=== PATIENT | male | born 1955 | race Caucasian/White ===

== ENCOUNTER → 2017-05-06 | Outpatient (CLI) | payer OTHER | LOC: FIMAGING 09:18 | PROVIDERS: ATTEND Physician Assistant | DX: R93.8 Abnormal findings on diagnostic imaging of other specified body structures (principal) ==

== ENCOUNTER → 2017-05-08 | Outpatient (CLI) | payer OTHER | LOC: FIMAGING 08:14 | PROVIDERS: ATTEND Family Medicine | DX: K59.00 Constipation, unspecified (principal) ==

== ENCOUNTER → 2017-05-19 | Outpatient (CLI) | payer OTHER | LOC: FIMAGING 10:31 | PROVIDERS: ATTEND Family Medicine | DX: K59.00 Constipation, unspecified (principal) ==

== ENCOUNTER → 2017-06-18 | Outpatient (CLI) | payer OTHER ==
[~2017-06-18] MED LIST: GADOBUTROL 10 ML VIAL IVP ONE
== END ==
LOC: FIMAGING 10:20
PROVIDERS: ATTEND Internal Medicine Hematology & Oncology
DX: Z03.89 Encounter for observation for other suspected diseases and conditions ruled out (principal); C64.9 Malignant neoplasm of unspecified kidney, except renal pelvis
CPT/HCPCS: A9585

== ENCOUNTER 2017-06-22 12:16 | Day surgery (SDC) | payer OTHER ==
[2017-06-22] MEDS ORDERED: LIDOCAINE 1% 2 ML INJ ID PRN (12:33)
[2017-06-22] MEDS ORDERED: LR 1,000 ML IV ONE (12:33)
[2017-06-22] MEDS ORDERED: LIDOCAINE 1% 2 ML INJ ONE (12:36)
[2017-06-22] MEDS ORDERED: INDOMETHACIN 50 MG SUPP PR PRN (13:53)
--- NOTE | 2017-06-22 13:53 | PDGENHP ---
History & Physical Chief Complaint: rectal cancer History of Present Illness: 62 year old male presents for evaluation of a distal rectal cancer. Pertinent Past, Social, Family History: PMHx: none. PSurgHx: right carpal tunnel. faMHx: prostate ca Relevant Physical Exam: HEENT: anicteric. Cv: RRR +s1s2. lungs: CTAB. Abd: soft, nt, + bs Cardiorespiratory Assessment: ASA 2
--- NOTE | 2017-06-22 13:53 | PDANEPAE ---
ANE History of Present Illness Rectal CA ANE Past Medical History - Cardiovascular History Hx Hypertension: No Hx Arrhythmias: No Hx Chest Pain: No Hx Coronary Artery / Peripheral Vascular Disease: No Hx CHF / Valvular Disease: No Hx Palpitations: No - Pulmonary History Hx COPD: No Hx Asthma/Reactive Airway Disease: No Hx Recent Upper Respiratory Infection: No Hx Oxygen in Use at Home: No Hx Sleep Apnea: No Sleep Apnea Screening Result - Last Documented: Negative - Neurologic History Hx Cerebrovascular Accident: No Hx Seizures: No Hx Dementia: No - Endocrine History Hx Diabetes: No - Renal History Hx Renal Disorders: No - Liver History Hx Hepatic Disorders: No - Neurological & Psychiatric Hx Hx Neurological and Psychiatric Disorders: No - Cancer History Hx Cancer: Yes Cancer History Comment: RECTAL CANCER NEW DIAGNOSIS - Congenital Disorder History Hx Congenital Disorders: No - GI History Hx Gastrointestinal Disorders: Yes Gastrointestinal History Comment: COLON CANCER - Other Health History Other Health History: NONE - Chronic Pain History Chronic Pain: No - Surgical History Prior Surgeries: NONE ANE Review of Systems Review of Systems: - Exercise capacity METS (RN): 4 METS ANE Patient History - Allergies Allergies/Adverse Reactions: No Known Allergies Allergy (Verified 06/16/17 15:34) - NPO status NPO Since - Liquids (Date): 06/22/17 NPO Since - Liquids (Time): 07:00 NPO Since - Solids (Date): 06/21/17 NPO Since - Solids (Time): 04:00 - Anes Hx Anes Hx: no prior problems - Smoking Hx Smoking Status: Never smoked - Family Anes Hx Family Hx Anesthesia Complications: NONE ANE Labs/Vital Signs - Vital Signs Blood Pressure: 121/70 Heart Rate: 69 Respiratory Rate: 16 O2 Sat (%): 96 Height: 172.72 cm Weight: 58.967 kg ANE Physical Exam - Airway Mallampati Score: Class 2 Mouth exam: normal dental/mouth exam - Pulmonary Pulmonary: no respiratory distress - Cardiovascular Cardiovascular: regular rate and rhythym - ASA Status ASA Status: II ANE Anesthesia Plan Anesthesia Plan: MAC
[2017-06-22] MEDS ORDERED: PROPOFOL/EMULSION 500 MG/50 ML BOTTLE IV ONE (13:55)
[2017-06-22] MEDS ORDERED: NS 500 ML IV SCH (14:00)
[2017-06-22] MEDS ORDERED: NALOXONE HCL 0.4 MG/ML INJ IVP PRN (14:05)
[2017-06-22] MEDS ORDERED: ONDANSETRON 4 MG/2 ML VIAL IVP PRN (14:05)
--- NOTE | 2017-06-22 14:30 | GIREPORT ---
[facility] Surgical Services - Endoscopy Department Patient Name: Hunter Campos Procedure Date: 06/22/2017 1:47 PM Patient Type: Outpatient Attending / ER Physician: Benji Garza MD Procedure: Lower EUS Indications: Pre-treatment staging for anorectal carcinoma Patient Profile: 62 year old male presents for staging of a rectal cancer. Providers: Benji Garza MD Medicines: Monitored Anesthesia Care Complications: No immediate complications. Description of Procedure: After obtaining informed consent, the endoscope was passed under direct vision. Throughout the procedure, the patient's blood pressure, pulse, and oxygen saturations were monitored continuously. The Endosonoscope was introduced through the anus and advanced to the sigmoid colon for ultrasound. The Colonoscope with irrigation channel was introduced thro ugh the anus and advanced to the sigmoid colon. The lower EUS was accomplis hed without difficulty. The patient tolerated the procedure well. The quali ty of the bowel preparation was good. Findings: Endoscopic Finding : A fungating, infiltrative and ulcerated partially obstructing large mas s was found in the distal rectum about 1cm from the dentate line. The mass wa s partially circumferential (involving two-thirds of the lumen circumfere nce). The mass measured seven cm in length. No bleeding was present. Endosonographic Finding : A hypoechoic mass was found in the rectum. The mass was encountered at 1 cm (from the anal verge). The endosonographic borders were poorly-defined. The mass measured 13 mm (in maximum thickness). There was sonographic evide nce suggesting breakthrough of the muscularis propria with invasion into th e perirectal fat (Layer 5, manifested by an irregular outer surface). The re were several lymph nodes of 3-5mm at the level of the tumor,. The lymph nodes were distinct, round, and hypoechoic. Reactive versus malignant? Not amenable to FNA since at the level of the tumor. Estimated Blood Loss: Estimated blood loss: none. Post Op Diagnosis: - Malignant partially obstructing tumor in the distal rectum. - Rectal mass was visualized endosonographically. This was staged uT3 u Nx. - No specimens collected. Recommendation: - Discharge patient to home (with escort). - PET scan - Follow up with oncology. - Thank you for allowing me to participate in the care of your patient. Attending Participation: I personally performed the entire procedure. Benji Garza MD Benji Garza MD 06/22/2017 2:30:06 PM This report has been signed electronicallyBenji Garza MD Number of Addenda: 0 Note Initiated On: 06/22/2017 1:47 PM Total Procedure Duration Time 0 hours 18 minutes 42 seconds [email or web address]
--- NOTE | 2017-06-22 14:35 | POSTANESTH ---
Post Anesthetic Evaluation Cardiovascular Status: Similar to Pre-Op Cond Respiratory Status: Similar to Pre-op Cond. Level of Consciousness/Mental Status: Alert and Oriented (Similiar to pre-op) Pain Control: Adequate, Prn Tx Ordered Nausea/Vomiting Control: Adequate, Prn Tx Ordered Complications Possibly Related to Anesthesia: None Noted
[2017-06-22 14:54] VITALS: TEMP 98.6
[2017-06-22 15:21] VITALS: BP 124/71; PULSE 67; RESP 18; O2SAT 96
== END 2017-06-22 15:50 | disposition home or self-care (01) ==
LOC: FSGY 12:16
PROVIDERS: ATTEND Internal Medicine Gastroenterology
PROC: BD47ZZZ Ultrasonography of Gastrointestinal Tract (ICD-10-PCS; principal; 2017-06-22 14:15)
PROC: 0DJD8ZZ Inspection of Lower Intestinal Tract, Via Natural or Artificial Opening Endoscopic (ICD-10-PCS; principal; 2017-06-22 14:15)
DX: C20 Malignant neoplasm of rectum (principal); R59.1 Generalized enlarged lymph nodes
CPT/HCPCS: J2704

== ENCOUNTER → 2017-07-13 | Outpatient (CLI) | payer OTHER | LOC: FIMAGING 06:46 | PROVIDERS: ATTEND Internal Medicine Hematology & Oncology | DX: D43.4 Neoplasm of uncertain behavior of spinal cord (principal); M51.36 Other intervertebral disc degeneration, lumbar region; M51.26 Other intervertebral disc displacement, lumbar region; M99.73 Connective tissue and disc stenosis of intervertebral foramina of lumbar region; C20 Malignant neoplasm of rectum | CPT/HCPCS: A9585 ==

== ENCOUNTER 2017-09-22 12:33 | Inpatient (IN) | payer OTHER, MEDICAID ==
[2017-09-22] MEDS ORDERED: LIDOCAINE 1% 2 ML INJ ID PRN (12:48)
[2017-09-22] MEDS ORDERED: LR 1,000 ML IV ONE (12:48)
[2017-09-22] MEDS ORDERED: MIDAZOLAM 2 MG/2 ML VIAL ONE ×2 (14:02→17:15)
[2017-09-22] MEDS ORDERED: MIDAZOLAM 2 MG/2 ML VIAL IVP ONE (14:02)
--- NOTE | 2017-09-22 14:04 | PDANEPAE ---
ANE History of Present Illness ap resection ANE Past Medical History - Cardiovascular History Hx Hypertension: No Hx Arrhythmias: No Hx Chest Pain: No Hx Coronary Artery / Peripheral Vascular Disease: No Hx CHF / Valvular Disease: No Hx Palpitations: No - Pulmonary History Hx COPD: No Hx Asthma/Reactive Airway Disease: No Hx Recent Upper Respiratory Infection: No Hx Oxygen in Use at Home: No Hx Sleep Apnea: No Sleep Apnea Screening Result - Last Documented: Negative - Neurologic History Hx Cerebrovascular Accident: No Hx Seizures: No Hx Dementia: No - Endocrine History Hx Diabetes: No Hypothyroid: No Hyperthyroid: No - Renal History Hx Renal Disorders: No - Liver History Hx Hepatic Disorders: No - Neurological & Psychiatric Hx Hx Neurological and Psychiatric Disorders: No - Cancer History Hx Cancer: Yes Cancer History Comment: RECTAL. FINISHED RADIATION 08/10/17 - Congenital Disorder History Hx Congenital Disorders: No - GI History GERD: no Hx Gastrointestinal Disorders: Yes Gastrointestinal History Comment: COLON CANCER - Other Health History Other Health History: POST RADIATION PELLING OF SKIN FROM FEET AND HANDS - Chronic Pain History Chronic Pain: Yes (RECTAL AREA) - Surgical History Prior Surgeries: COLONOSCOPY 06/25/17. CARPAL TUNNEL RELEASE. TONSILLECTOMY ANE Review of Systems Review of Systems: - Exercise capacity METS (RN): 4 METS ANE Patient History - Allergies Allergies/Adverse Reactions: No Known Allergies Allergy (Verified 06/16/17 15:34) - Home Medications Home Medications: NK [No Known Home Meds] 09/17/17 [Last Taken Unknown] - NPO status NPO Status: no food or drink >8 hours NPO Since - Liquids (Date): 09/22/17 NPO Since - Liquids (Time): 03:00 NPO Since - Solids (Date): 09/21/17 NPO Since - Solids (Time): 06:00 - Anes Hx Anes Hx: no prior problems - Smoking Hx Smoking Status: Never smoked - Family Anes Hx Family Hx Anesthesia Complications: NONE ANE Labs/Vital Signs - Vital Signs Blood Pressure: 137/75 Heart Rate: 80 Respiratory Rate: 16 O2 Sat (%): 93 Height: 176.53 cm Weight: 61.235 kg ANE Physical Exam - Airway Mallampati Score: Class 2 Mouth exam: normal dental/mouth exam - Pulmonary Pulmonary: no respiratory distress - Cardiovascular Cardiovascular: regular rate and rhythym - ASA Status ASA Status: II ANE Anesthesia Plan Anesthesia Plan: general endotracheal anesthesia
--- NOTE | 2017-09-22 14:04 | PDHPUP ---
History & Physical Update H&P update statement: This history and physical update is based on an assessment of the patient which was completed after admission or registration (within 24 hours), but prior to the surgery/procedure. H&P update: H&P reviewed & patient examined, no change in patient's condition since H&P completed
[2017-09-22] MEDS ORDERED: DEXAMETHASONE 4 MG/ML VIAL ONE (14:10)
[2017-09-22] MEDS ORDERED: LIDOCAINE 2% 5 ML SDV ONE (14:10)
[2017-09-22] MEDS ORDERED: PROPOFOL 200 MG/20 ML VIAL ONE (14:10)
[2017-09-22] MEDS ORDERED: ROCURONIUM 100 MG/10 ML VIAL ONE (14:10)
[2017-09-22] MEDS ORDERED: fentaNYL 100 MCG/2 ML INJ ONE ×2 (14:10→19:15)
[2017-09-22] MEDS ORDERED: BUPIVACAINE 0.5% 30 ML SDV ONE (14:43)
[2017-09-22] MEDS ORDERED: ROCURONIUM 50 MG/5 ML VIAL ONE (16:54)
[2017-09-22] MEDS ORDERED: ONDANSETRON 4 MG/2 ML VIAL ONE (17:00)
[2017-09-22] MEDS ORDERED: LR 500 ML IV PRN (18:02)
[2017-09-22] MEDS ORDERED: ALBUTEROL 3 ML DEYVIAL IH PRN (18:02)
[2017-09-22] MEDS ORDERED: PHENYLEPHRINE HCL 100 MCG/ML SYR IVP PRN (18:02)
[2017-09-22] MEDS ORDERED: ONDANSETRON 4 MG/2 ML VIAL IVP PRN (18:02)
[2017-09-22] MEDS ORDERED: NALOXONE HCL 0.4 MG/ML INJ IVP PRN (18:02)
[2017-09-22] MEDS ORDERED: SUGAMMADEX SODIUM 200 MG/2 ML VIAL IVP ONE (18:27)
--- NOTE | 2017-09-22 18:48 | POSTOPPROG ---
Post Op Note Date of Operation: 09/22/17 Surgeon: Adele Stack Head Tennis Coach: bertha Anesthesiologist: omega Anesthesia: GET(General Endotracheal) Pre-op Diagnosis: rectal cancer Post-op Diagnosis: same Indication: 62 yo with rectal cancer s.p chemo and radiation Procedure: davinci abdominal perineal resection with ostomy Findings: no unusual Inf/Abcess present in the surg proc area at time of surgery?: No EBL: 100-500 Drains: Anuj Leonard, Wound Vac Specimen(s): rectum and anus
--- NOTE | 2017-09-22 19:05 | POSTANESTH ---
Post Anesthetic Evaluation Cardiovascular Status: Normal, Stable Respiratory Status: Normal, Stable Level of Consciousness/Mental Status: Can Participate in Eval Pain Control: Adequate, Prn Tx Ordered Nausea/Vomiting Control: Adequate, Prn Tx Ordered Complications Possibly Related to Anesthesia: None Noted
[2017-09-22] MEDS ORDERED: HYDROmorphONE/DILAUDID 2 MG/ML INJ ONE (19:14)
[2017-09-22] MEDS: HYDROmorphONE/DILAUDID 2 MG/ML INJ IVP PRN ×3 (19:20→19:50)
[2017-09-22] MEDS: fentaNYL 100 MCG/2 ML INJ IVP PRN ×3 (19:22→19:50)
[2017-09-22] MEDS: NS 1,000 ML IV SCH (22:30)
[2017-09-22] MEDS: KETOROLAC 15 MG/1 ML SDV IVP SCH (23:31)
[2017-09-23] MEDS: KETOROLAC 15 MG/1 ML SDV IVP SCH ×4 (05:13→23:12)
[2017-09-23 05:35] LABS: PLATELET COUNT 248 10^3/uL (150-400)
--- NOTE | 2017-09-23 07:58 | PDMN ---
Medical Necessity [place] [facility] [place]: abdominoperineal resection or total colectomy with proctectomy 5 days, INPT only : Davinci abdominal perineal resection with ostomy
[2017-09-23] MEDS: ENOXAPARIN 40 MG/0.4 ML SYR SC SCH (10:28)
[2017-09-23] MEDS: NS 1,000 ML IV SCH ×2 (10:48→21:54)
[2017-09-23] MEDS: HYDROCODONE/APAP 5/325 TAB PO PRN (10:49)
--- NOTE | 2017-09-23 12:14 | SOAPPROG ---
SOAP Progress Note Assessment/Plan: Assessment: POD # 1 s/p Davinci APR Neuro - [place], Toradol, Tylenol, morphine prn Resp - Cough IS Cards - No active issues GI - Gas in appliance FEN - NS@75. Clears : Keep mclaughlin due to deep pelvic dissection Heme/ID - Lovenox Dispo - Continue inpatient Other - Wound ostomy consult. Incisional wound vac, PT/OT S: Feeling tethered to O2, Mclaughlin, IV, SCDS, Wound Vac MANUEL O: General: Pleasant, well-nourished and well-groomed man HENT: Normocephalic, no gross hearing deficits, mucous membranes moist, pupils equal and round, no scleral icterus Lungs: Clear to auscultation bilaterally, No increased work of breathing Cardiac: Regular rate, no peripheral edema Abdomen: Bowel sounds present, gas in appliance. Ostomy [place] and a bit swollen. Good profile. Incisions clean dry and intact [place]V to suction MANUEL with scant serosang fluid Skin: Warm and dry. Psych: Mood and affect normal Neuro: Grossly intact Plan: 09/23/17 12:10 Objective: Vital Signs Temp Pulse Resp BP Pulse Ox 37.2 C 68 15 113/53 L 95 09/23/17 12:05 09/23/17 12:05 09/23/17 12:05 09/23/17 12:05 09/23/17 12:05 Laboratory Results 09/23/17 05:13 09/23/17 05:13 09/22/17 09/23/17 09/24/17 05:59 05:59 05:59 Intake Total 3000 Output Total 390 Balance 2610 ICD10 Worksheet Patient Problems: Problems Problem Status Onset Rectal cancer Acute - ICD10 Problem Qualifiers (1) Rectal cancer
--- NOTE | 2017-09-23 14:26 | WOCRNPDOC ---
LISA Advanced Assessment Note - Colostomy Assessment, Advanced Left Lower Abdomen Colostomy Stoma Colostomy Appliance Intact: Yes Colostomy Appliance Currently in Use: One Piece Convex, 2 1/4, Cut to Fit Stoma Color: Red Stoma Turgor: Moist, Taught, Shiny Stoma Shape: Round Stoma Height: Protuding Excessively (swollen) Colostomy Effluent: Flatus, Serosangenous (transitional ) Colostomy Details: End Colostomy Comment/Treatment Details: Patient seems somewhat confused today and is asking repetative questions, so it seems prudent to wait another day past surgery to initiate pouch change teaching, although the basics were reviewed. Patient is mainly concerned about flatus and being able to have an appliance that he can burp and has a filter and is worried about "blow outs". Reviewed one vs two piece appliances, and practiced emptying the pouch. Patient has some difficulty finding and pulling the tab at the bottom of the aliyah pouch, so there was some discussion about trying the coloplast closure although senior economist did not have any samples at this time, coloplast was contacted to send samples to his home of [facility]. Patient visualized his stoma and asked appropriate questions about it and how long the pouch and barrirer will last and need to be changed (every 4-5 days). Per his verbal consent secure start with [place] was also initiated. Will round again thursday for first pouch change. Current pouch was changed last night as barrier was leaking per patient report and is intact and working appropriately now. Please use 2 piece flat barrier if pouch needs to be changed instead of the soft convex one piece. Day one teaching packet reviewed and left with patient.
[2017-09-24] MEDS: KETOROLAC 15 MG/1 ML SDV IVP SCH ×4 (05:29→23:29)
[2017-09-24] MEDS: ENOXAPARIN 40 MG/0.4 ML SYR SC SCH (09:45)
[2017-09-24] MEDS: HYDROCODONE/APAP 5/325 TAB PO PRN (10:31)
--- NOTE | 2017-09-24 11:47 | ASMTCMCOM ---
CM Note CM Note Notes: Pt had surgery for his rectal ca and now has a new ostomy. Pt will be here a while longer. He will need HC RN at [place]. Other services TBD. He will stay with a friend for the first week or so. Her name is Quoc Chen. Her Ph # is [phone]. Her address is [address] [place] [address]. [employer] can cover pt's ins and both Quoc's home and his own. Faxed referral. Also gave pt inf on ostomy support group. Pt's friend Quoc who is also his employer, asked for info on pt qualifying for medicaid and applying for SSDI. LM for Diana with [employer]. Date Signed: 09/24/2017 11:46 AM Electronically Signed By:Karly Edmondson LCSW
--- NOTE | 2017-09-24 14:06 | SOAPPROG ---
SOAP Progress Note Assessment/Plan: Assessment: POD # 2 s/p Davinci APR Neuro - [place], Toradol, Tylenol, morphine prn Resp - Cough IS Cards - No active issues GI - Gas in appliance FEN - Regular diet - go slow : Keep mclaughlin due to deep pelvic dissection Heme/ID - Lovenox Dispo - Continue inpatient Other - Wound ostomy consult. Incisional wound vac, PT/OT S: Better today. Concerned about filtered appliances and food choices O: General: Pleasant, well-nourished and well-groomed man HENT: Normocephalic, no gross hearing deficits, mucous membranes moist, pupils equal and round, no scleral icterus Lungs: Clear to auscultation bilaterally, No increased work of breathing Cardiac: Regular rate, no peripheral edema Abdomen: Bowel sounds present, gas in appliance. Ostomy [place] and a bit swollen. Good profile. Incisions clean dry and intact [place]V to suction MANUEL with scant serosang fluid Skin: Warm and dry. Psych: Mood and affect normal Neuro: Grossly intact Plan: 09/23/17 12:10 09/24/17 14:05 Objective: Vital Signs Temp Pulse Resp BP Pulse Ox 36.6 C 80 16 135/70 H 93 09/24/17 12:38 09/24/17 12:38 09/24/17 12:38 09/24/17 12:38 09/24/17 12:38 Laboratory Results 09/23/17 05:13 09/23/17 05:13 09/23/17 09/24/17 09/25/17 05:59 05:59 05:59 Intake Total 3000 2636 Output Total 390 1120 Balance 2610 1516 ICD10 Worksheet Patient Problems: Problems Problem Status Onset Rectal cancer Acute - ICD10 Problem Qualifiers (1) Rectal cancer
[2017-09-25 05:05] LABS: PLATELET COUNT 225 10^3/uL (150-400)
[2017-09-25] MEDS: KETOROLAC 15 MG/1 ML SDV IVP SCH ×3 (06:20→20:54)
--- NOTE | 2017-09-25 08:36 | SOAPPROG ---
SOAP Progress Note Assessment/Plan: Assessment/Plan: 62yo M POD #3 s/p Davinci APR and end colostomy Neuro - [place], Toradol, Tylenol, morphine prn Resp - Cough IS Cards - No active issues GI - Gas in appliance, no stool yet FEN - Regular diet - DC mclaughlin today Heme/ID - Lovenox Ostomy education Incisional wound vac PT/OT Dispo - Continue inpatient. Likely home Thursday/Thursday S: Doing well this am, no complaints. Pain controlled. Wants to get rid of some tubes today. Motivated to go for a walk O: Sitting upright in chair, comfortable, NAD No increased work of breathing No peripheral edema +BS, gas in appliance. Ostomy pink and a bit swollen, good profile, serosanguinous fluid in bag, no stool. Incisions clean dry and intact. WV to suction - no erythema around perineal incision. MANUEL with serosanguinous fluid Mclaughlin clear yellow urine Objective: Vital Signs Temp Pulse Resp BP Pulse Ox 37.1 C 71 18 133/78 H 96 09/25/17 07:50 09/25/17 07:50 09/25/17 07:50 09/25/17 07:50 09/25/17 07:50 Laboratory Results 09/25/17 04:40 09/25/17 04:40 09/24/17 09/25/17 09/26/17 05:59 05:59 05:59 Intake Total 2636 1000 Output Total 1120 1640 785 Balance 1516 -640 -785 ICD10 Worksheet Patient Problems: Problems Problem Status Onset Rectal cancer Acute
[2017-09-25] MEDS: ENOXAPARIN 40 MG/0.4 ML SYR SC SCH (09:10)
--- NOTE | 2017-09-25 11:30 | WOCRNPDOC ---
LISA Advanced Assessment Note - Colostomy Assessment, Advanced Left Lower Abdomen Colostomy Stoma Colostomy Appliance Intact: Yes Colostomy Appliance Currently in Use: One Piece Convex Stoma Color: Red Stoma Turgor: Moist, Shiny Stoma Shape: Round Stoma Height: Protuding Excessively Mucocutaneus Junction: Intact Colostomy Effluent: Serosangenous Colostomy Details: End Peristomal Skin: Intact Colostomy Comment/Treatment Details: Day 2 ostomy education dropped off and discussed. Patient participation 100% hands on. Patient helped remove 1 piece ostomy with minimal assistance, including use of adhesive remover. Ostomy site cleaned with water and washcloths and patted dry. Patient used measuring guide to measure his ostomy, which is 41mm. Patient cut the new barrier for the 2 piece appliance placed today. Patient needed minimal assistance with securing down the new barrier and connecting the new pouch. Patient asked lots of questions, but seems especially concerned with burping the appliance for gas, and dietary restrictions. Reassured patient that a regular diet was safe for his ostomy, and reminded patient to drink plenty of fluids. Questions asked and answered about emptying the pouch, frequency of emptying and changing of appliance and pouch, showering, and frequency/importance of measuring stoma during the healing process. Patient's employer Quoc was in room, and will be for present for ostomy day 3 teaching on Thursday. Gaby PHAM assisted with teaching.
[2017-09-25] MEDS: HYDROCODONE/APAP 5/325 TAB PO PRN (12:04)
--- NOTE | 2017-09-25 16:27 | ASMTCMCOM ---
CM Note CM Note Notes: Chart reviewed. Patient screened by [employer] data. Outcome unknown at present, Plan home to his friends upon dc with [employer]. See prior note. CM to follow. Plan: Dc to friend's home with [facility]. Ostomy support group information provided by [employer] insurance case manager. Date Signed: 09/25/2017 04:26 PM Electronically Signed By:Holly Hernandez RN
[2017-09-26] MEDS: KETOROLAC 15 MG/1 ML SDV IVP SCH ×2 (03:02→05:32)
[2017-09-26] MEDS: ENOXAPARIN 40 MG/0.4 ML SYR SC SCH (08:04)
[2017-09-26] MEDS ORDERED: MAGNESIUM HYDROXIDE 30 ML UDCUP PO PRN (08:17)
[2017-09-26] MEDS ORDERED: BISACODYL 10 MG SUPP PR PRN (08:17)
--- NOTE | 2017-09-26 08:17 | SOAPPROG ---
SOAP Progress Note Assessment/Plan: Assessment: s/p Davinci APR Path - no residual cancer (could see ulcer). No lymph nodes. (took tissue but very little pelvic fat) Neuro - [place], Toradol, Tylenol Resp - Cough IS Cards - No active issues GI - Gas in appliance - awaiting stool. Will add bowel protocol FEN - Regular diet :Bashir removed 09/25. Voiding Heme/ID - Lovenox Dispo - Continue inpatient Other - Wound ostomy consult. Incisional wound vac, PT/OT On discharge, can remove MANUEL drain and incisional wound vac. Home Sun / Thursday S: Doing well. Eating O: General: Pleasant, well-nourished and well-groomed man Lungs: Clear to auscultation bilaterally, No increased work of breathing Cardiac: Regular rate, no peripheral edema Abdomen: Bowel sounds present,a gas in appliance. Ostomy [place] with prominent profile. Incisions clean dry and intact [place] to suction MANUEL with scant serosang fluid Skin: Warm and dry. Plan: 09/23/17 12:10 09/24/17 14:05 09/26/17 08:14 Objective: Vital Signs Temp Pulse Resp BP Pulse Ox 37.5 C 77 14 133/67 H 98 09/26/17 07:52 09/26/17 07:52 09/26/17 07:52 09/26/17 07:52 09/26/17 07:52 Laboratory Results 09/25/17 04:40 09/25/17 04:40 09/25/17 09/26/17 09/27/17 05:59 05:59 05:59 Intake Total 1000 2730 Output Total 1640 2310 30 Balance -640 420 -30 ICD10 Worksheet Patient Problems: Problems Problem Status Onset Rectal cancer Acute - ICD10 Problem Qualifiers (1) Rectal cancer
[2017-09-26] MEDS: SENNOSIDES/DOCUSATE SODIUM TAB PO SCH ×2 (10:20→21:02)
[2017-09-26] MEDS ORDERED: IBUPROFEN 600 MG TAB PO PRN (10:50)
[2017-09-26] MEDS: ACETAMINOPHEN 325 MG TAB PO PRN ×2 (11:18→17:19)
[2017-09-27] MEDS: ENOXAPARIN 40 MG/0.4 ML SYR SC SCH (08:37)
[2017-09-27] MEDS: SENNOSIDES/DOCUSATE SODIUM TAB PO SCH ×2 (08:37→20:36)
--- NOTE | 2017-09-27 13:32 | WOCRNPDOC ---
LISA Advanced Assessment Note - Colostomy Assessment, Advanced Left Lower Abdomen Colostomy Stoma Colostomy Appliance Intact: Yes Colostomy Appliance Currently in Use: Two Piece Flat, 2 3/4, Cut to Fit Stoma Color: Red Stoma Turgor: Moist Stoma Shape: Round Stoma Height: Protuding Excessively Mucocutaneus Junction Comment: appliance intact today; did not assess Colostomy Effluent: Serosangenous Colostomy Details: End Colostomy Comment/Treatment Details: Met with patient and friend Quoc this afternoon to go over colostomy teaching and appliance change. Patient continues to have serosanguinous output in his pouch, no stool yet. He stated that he preferred to have his next appliance change when ostomy is producing, and declined an appliance change today. Appliance was last changed on Monday 09/25, and remains intact. This author sat down with patient and answered various questions about appliance selection, diet, ostomy troubleshooting, and supply ordering. Patient has read the literature provided to him extensively, and has a particular concern about both flatus and diarrhea. While his ostomy does not currently present an issue with either of those things, he is concerned about how to manage these problems going forward. Discussed which foods are most likely to cause flatus and loose stools, and how to troubleshoot diarrhea with diet should he experience any. He reports having some difficulty with attaching the 2-piece flange system together, and expressed an interest in a 1-piece appliance for his pouch change tomorrow. Wound/drop hammer operator helper will follow up with him tomorrow for appliance change and additional questions.
[2017-09-27] MEDS: ACETAMINOPHEN 325 MG TAB PO PRN ×2 (16:21→20:36)
[2017-09-27] MEDS: POLYETHYLENE GLYCOL 3350 17 GM PKT PO PRN (16:22)
--- NOTE | 2017-09-27 16:48 | SOAPPROG ---
SOAP Progress Note Assessment/Plan: Assessment: STATUS POST APR/DOING WELL EXCEPT FOR NO OSTOMY OUTPUT/AFEBRILE ABDOMEN SOFT NONTENDER/WOUND OKAY/ OSTOMY QUITE PROLAPSE TORSED SIGNIFICANTLY SWOLLEN WITH SOME DUSKINESS--PATIENT STATES IT HAS BEEN THIS WAY SINCE CREATION CHEST CLEAR/COR REGULAR RHYTHM/AFEBRILE Plan: CATHARTICS/CLOSE OBSERVATION THE OSTOMY WHICH APPEARS TO ME TO BE PROLAPSE 09/27/17 16:46 Objective: Vital Signs Temp Pulse Resp BP Pulse Ox 37.1 C 74 16 118/74 96 09/27/17 16:10 09/27/17 16:10 09/27/17 16:10 09/27/17 16:10 09/27/17 16:10 Laboratory Results 09/25/17 04:40 09/25/17 04:40 09/26/17 09/27/17 09/28/17 05:59 05:59 05:59 Intake Total 2730 1770 500 Output Total 2310 1110 680 Balance 420 660 -180 ICD10 Worksheet Patient Problems: Problems Problem Status Onset Rectal cancer Acute
[2017-09-28] MEDS: SENNOSIDES/DOCUSATE SODIUM TAB PO SCH ×2 (08:41→21:14)
[2017-09-28] MEDS: ENOXAPARIN 40 MG/0.4 ML SYR SC SCH (08:41)
--- NOTE | 2017-09-28 15:56 | SOAPPROG ---
SOAP Progress Note Assessment/Plan: Assessment/Plan: 62yo M POD #6 s/p Davinci APR and end colostomy Neuro - controlled c PO pain meds Resp - Cough IS Cards - No active issues GI - Gas in appliance, no stool yet. Bowel protocol FEN - Regular diet - voiding spontaneously s/p mclaughlin removal Heme/ID - Lovenox Ostomy education Incisional wound vac PT/OT Dispo - Plan was home today but patient very uncomfortable being discharged without having a bowel movement. plan for DC tomorrow am. Will remove MANUEL and vac prior to DC S: Doing well this am, no complaints. Pain controlled. Discussed discharge but is very resistant and uncomfortable with being sent home without having a bowel movement. He would like additional ostomy teaching before discharge O: Sitting upright in chair, comfortable, NAD No increased work of breathing No peripheral edema +BS, gas in appliance. Ostomy pink and a bit swollen, protuberant, serous/ brownish fluid in bag, no stool. Incisions clean dry and intact. [place] to suction. MANUEL with serosanguinous fluid Objective: Vital Signs Temp Pulse Resp BP Pulse Ox 37 C 82 17 115/66 96 09/28/17 15:21 09/28/17 15:21 09/28/17 15:21 09/28/17 15:21 09/28/17 15:21 Laboratory Results 09/25/17 04:40 09/25/17 04:40 09/27/17 09/28/17 09/29/17 05:59 05:59 05:59 Intake Total 1770 800 920 Output Total 1110 2350 1355 Balance 660 -1550 -651 ICD10 Worksheet Patient Problems: Problems Problem Status Onset Rectal cancer Acute
--- NOTE | 2017-09-28 17:21 | WOCRNPDOC ---
WOCRMervin Advanced Assessment Note - Colostomy Assessment, Advanced Left Lower Abdomen Colostomy Stoma Colostomy Appliance Intact: Yes Colostomy Appliance Currently in Use: Two Piece Flat, 2 1/4 Stoma Color: Red Stoma Turgor: Moist Stoma Height: Protuding Excessively Colostomy Effluent: Serosangenous Colostomy Size - Head-to-Toe Length X Width X Depth (cm): 44 mm Colostomy Details: End Stomal Complications: Stomal Prolapse Colostomy Comment/Treatment Details: Small amount of slough (about [id number] ) noted around 11 oclock on stoma at base. There does seem to be signifitanct stomal swelling on top of a mild prolapse. Teaching day 3 when pouch change is done in conjunction with patient. Patient attempted to change pouch independently but was quite distracted by his own thoughts and over an hour was spent in the room trying to focus him and keep his thoughts on track. Patient was looping on whether his stoma was a 41 mm or a 44 mm circumference as commonwealth attorney on Thursday said it was a 41 mm and today he was measured at a 44. Lindy RN came in to assist keeping patient on track with one task at a time. We practiced creating a template, cutting the wafer, cleaning kimberly stomal skin and applying pouch. Ultimately patient was unable to properly cut the pouch and cut through the wafer of the sample one piece that he had decided to order for his home supplies. A smaller pair of scissors might be benficial as the aliyah scissors he finds cumbersome. stud master/mistress ended up cutting the template and the wafer for the patient and he placed the wafer/bag combo.Consult ran past 5 pm so ostomy home supplies will need to be ordered tomorrow. Patient has many questions, all of which were answered. At this point patient is unable to perform pouch change independently and will need extensive outpatient/home care support and teaching. stud master/mistress is encouraging staff to allow patient to perform all his care with his ostomy with verbal support rather than hands on support as much as possible. Char Puller will round again either tomorrow or Thu. Wound/commonwealth attorney inpatient will only round on him one more time only and patient is aware of this. He is also aware that commonwealth attorney can only spend about an hour in the room with him at a time.
--- NOTE | 2017-09-29 09:53 | SOAPPROG ---
SOAP Progress Note Assessment/Plan: Assessment/Plan: 62yo M POD #7 s/p Davinci APR and end colostomy Neuro - controlled c PO pain meds Resp - Cough IS Cards - No active issues GI - Gas in appliance, no stool yet. Bowel protocol FEN - Regular diet - voiding spontaneously s/p mclaughlin removal Heme/ID - Lovenox Ostomy education Incisional wound vac - removed today MANUEL drain removed today PT/OT Dispo - home today. F/u 1-2 weeks for suture removal. Call with worsening symptoms, questions or concerns. Pt seen c Dr. Stack S: Doing well this am, no complaints. Pain controlled. No stool. O: Sitting upright in chair, comfortable, NAD No increased work of breathing No peripheral edema +BS, gas in appliance. Ostomy pink and a bit swollen, protuberant, serous/ brownish fluid in bag, no stool. Incisions clean dry and intact. WV removed without difficulty. MANUEL drain removed without difficulty. Objective: Vital Signs Temp Pulse Resp BP Pulse Ox 36.9 C 74 12 124/70 H 94 09/29/17 07:58 09/29/17 07:58 09/29/17 07:58 09/29/17 07:58 09/29/17 07:58 Laboratory Results 09/25/17 04:40 09/25/17 04:40 09/28/17 09/29/17 09/30/17 05:59 05:59 05:59 Intake Total 800 1520 Output Total 5149 6144 370 Balance -1550 -1295 -370 ICD10 Worksheet Patient Problems: Problems Problem Status Onset Rectal cancer Acute
[2017-09-29] MEDS: ENOXAPARIN 40 MG/0.4 ML SYR SC SCH (10:25)
[2017-09-29] MEDS: SENNOSIDES/DOCUSATE SODIUM TAB PO SCH ×2 (10:25→20:55)
--- NOTE | 2017-09-29 11:56 | WOCRNPDOC ---
WOCRN Advanced Assessment Note - Colostomy Assessment, Advanced Left Lower Abdomen Colostomy Stoma Colostomy Appliance Intact: Yes Colostomy Appliance Currently in Use: Two Piece Flat, 2 3/4, Cut to Fit Stoma Color: Red Stoma Turgor: Moist Stoma Shape: Round Stoma Height: Protuding Excessively (increasing firmness) Colostomy Effluent: Serosangenous Colostomy Size - Head-to-Toe Length X Width X Depth (cm): 44mm in diameter Colostomy Details: End Colostomy Comment/Treatment Details: Patient declined appliance change today because it was changed yesterday. He did decide on a 2-piece system for now, and this author will give this information to case managment. Answered various questions regarding types of appliances, and attempted to keep patient's focus on basic ostomy care for now. Informed him that he can explore new products after his hospitalization, after he is able to manage basic care. Still no significant output in pouch; nursing reports <300mL since Thursday. Explored stomal os and could not palpate any stool or blockage. Stoma is measuring slightly larger than previously (was 41mm in diam, now closer to 44mm), which could be related to increased pressure from stool.Nursing has been giving patient meds and prune juice to faciliatate passage of stool. dye line operator to follow up tomorrow.
--- NOTE | 2017-09-29 16:29 | ASMTCMCOM ---
CM Note CM Note Notes: Patient will discharge to his friend Shannon lewis in the upcoming days. Her address has been sent to [facility], the agency that will see him for nursing and PT. Patient agrees to plan and will be discharged by the surgical team. Case Management will facilitate the discharge. Date Signed: 09/29/2017 04:29 PM Electronically Signed By:Debby Lujan RN
[2017-09-30] MEDS: SENNOSIDES/DOCUSATE SODIUM TAB PO SCH ×2 (08:03→21:16)
[2017-09-30] MEDS: ENOXAPARIN 40 MG/0.4 ML SYR SC SCH (08:03)
[2017-09-30] MEDS: POLYETHYLENE GLYCOL 3350 17 GM PKT PO PRN (08:03)
--- NOTE | 2017-09-30 10:20 | SOAPPROG ---
<Kerrie Ashley - Last Filed: 09/30/17 10:19> SOAP Progress Note Assessment/Plan: Assessment/Plan: 62yo M POD #8 s/p Davinci APR and end colostomy Increased swelling and duskiness of ostomy Tight at fascia NPO OR this afternoon for ostomy revision Objective: Vital Signs Temp Pulse Resp BP Pulse Ox 36.9 C 77 16 188/83 H 93 09/30/17 04:47 09/30/17 04:47 09/30/17 04:47 09/30/17 05:59 09/30/17 04:47 Laboratory Results 09/25/17 04:40 09/25/17 04:40 09/29/17 09/30/17 10/01/17 05:59 05:59 05:59 Intake Total 1520 350 Output Total 2815 445 Balance -1296 -04 ICD10 Worksheet Patient Problems: Problems Problem Status Onset Rectal cancer Acute <SreekanthAdele Live - Last Filed: 09/30/17 10:32> SOAP Progress Note Assessment/Plan: Assessment: Saw and examined Warned abdominal x ray with stool More distended Ostomy more swollen Tight at fascia Will take for revision Risks and benefits discussed CTAB RRR Plan: 09/30/17 10:31 Objective: Vital Signs Temp Pulse Resp BP Pulse Ox 36.9 C 77 16 188/83 H 93 09/30/17 04:47 09/30/17 04:47 09/30/17 04:47 09/30/17 05:59 09/30/17 04:47 Laboratory Results 09/25/17 04:40 09/25/17 04:40 09/29/17 09/30/17 10/01/17 05:59 05:59 05:59 Intake Total 1520 350 Output Total 2815 445 Balance -1295 -95 ICD10 Worksheet - ICD10 Problem Qualifiers (1) Rectal cancer
[2017-09-30] MEDS ORDERED: LR 1,000 ML IV ONE (14:20)
[2017-09-30] MEDS ORDERED: fentaNYL 100 MCG/2 ML INJ ONE (14:30)
[2017-09-30] MEDS ORDERED: MIDAZOLAM 2 MG/2 ML VIAL ONE (14:30)
[2017-09-30] MEDS ORDERED: PROPOFOL/EMULSION 500 MG/50 ML BOTTLE IV ONE (14:31)
--- NOTE | 2017-09-30 15:03 | PDANEPAE ---
ANE Past Medical History - Cardiovascular History Hx Hypertension: No Hx Arrhythmias: No Hx Chest Pain: No Hx Coronary Artery / Peripheral Vascular Disease: No Hx CHF / Valvular Disease: No Hx Palpitations: No - Pulmonary History Hx COPD: No Hx Asthma/Reactive Airway Disease: No Hx Recent Upper Respiratory Infection: No Hx Oxygen in Use at Home: No Hx Sleep Apnea: No Sleep Apnea Screening Result - Last Documented: Negative - Neurologic History Hx Cerebrovascular Accident: No Hx Seizures: No Hx Dementia: No - Endocrine History Hx Diabetes: No Hypothyroid: No Hyperthyroid: No - Renal History Hx Renal Disorders: No - Liver History Hx Hepatic Disorders: No - Neurological & Psychiatric Hx Hx Neurological and Psychiatric Disorders: No - Cancer History Hx Cancer: Yes Cancer History Comment: RECTAL. FINISHED RADIATION 08/10/17 - Congenital Disorder History Hx Congenital Disorders: No - GI History GERD: no Hx Gastrointestinal Disorders: Yes Gastrointestinal History Comment: COLON CANCER - Other Health History Other Health History: POST RADIATION PELLING OF SKIN FROM FEET AND HANDS - Chronic Pain History Chronic Pain: Yes (RECTAL AREA) - Surgical History Prior Surgeries: COLONOSCOPY 06/25/17. CARPAL TUNNEL RELEASE. TONSILLECTOMY ANE Review of Systems Review of Systems: - Exercise capacity METS (RN): 4 METS ANE Patient History - Allergies Allergies/Adverse Reactions: No Known Allergies Allergy (Verified 06/16/17 15:34) - NPO status NPO Since - Liquids (Date): 09/30/17 NPO Since - Liquids (Time): 08:00 NPO Since - Solids (Date): 09/30/17 NPO Since - Solids (Time): 08:00 - Smoking Hx Smoking Status: Never smoked - Family Anes Hx Family Hx Anesthesia Complications: NONE ANE Labs/Vital Signs - Labs Result Diagrams: 09/25/17 04:40 09/25/17 04:40 - Vital Signs Blood Pressure: 124/70 Heart Rate: 74 Respiratory Rate: 16 O2 Sat (%): 93 Height: 176.53 cm Weight: 61.235 kg ANE Physical Exam - Airway Neck exam: FROM Mallampati Score: Class 1 Mouth exam: normal dental/mouth exam - Pulmonary Pulmonary: no respiratory distress, no rales or rhonchi, clear to auscultation - Cardiovascular Cardiovascular: regular rate and rhythym, no murmur, rub, or gallop - ASA Status ASA Status: III ANE Anesthesia Plan Anesthesia Plan: general endotracheal anesthesia
[2017-09-30] MEDS ORDERED: BUPIVACAINE 0.5% 30 ML SDV ONE (15:06)
[2017-09-30] MEDS ORDERED: ALBUTEROL 3 ML DEYVIAL IH PRN (15:09)
[2017-09-30] MEDS ORDERED: MEPERIDINE 25 MG/ML SYR IVP PRN (15:09)
[2017-09-30] MEDS ORDERED: DEXAMETHASONE 4 MG/ML VIAL IVP PRN (15:09)
[2017-09-30] MEDS ORDERED: fentaNYL 100 MCG/2 ML INJ IVP PRN (15:09)
[2017-09-30] MEDS ORDERED: ONDANSETRON 4 MG/2 ML VIAL IVP PRN (15:09)
[2017-09-30] MEDS ORDERED: LR 500 ML IV PRN (15:09)
[2017-09-30] MEDS ORDERED: DIAZEPAM 5 MG/ML 1 ML SYR IVP PRN (15:09)
[2017-09-30] MEDS ORDERED: NALOXONE HCL 0.4 MG/ML INJ IVP PRN (15:09)
[2017-09-30] MEDS ORDERED: ONDANSETRON 4 MG/2 ML VIAL ONE (15:32)
[2017-09-30] MEDS ORDERED: ROCURONIUM 50 MG/5 ML VIAL ONE (15:32)
[2017-09-30] MEDS ORDERED: LIDOCAINE 2% 5 ML SDV ONE (15:32)
[2017-09-30] MEDS ORDERED: SUGAMMADEX SODIUM 200 MG/2 ML VIAL IVP ONE (15:32)
[2017-09-30] MEDS ORDERED: KETOROLAC 30 MG/1 ML SDV ONE (15:32)
--- NOTE | 2017-09-30 15:38 | POSTOPPROG ---
Post Op Note Date of Operation: 09/30/17 Surgeon: Adele Stack Anesthesiologist: magda Anesthesia: GET(General Endotracheal) Pre-op Diagnosis: ostomy congestion Post-op Diagnosis: same Indication: 62 yo s/p APR with no stool output and swelling of ostomy Procedure: ostomy revision Findings: tight fascia Inf/Abcess present in the surg proc area at time of surgery?: No EBL: Minimal Specimen(s): ostomy
--- NOTE | 2017-09-30 15:58 | ASMTCMCOM ---
CM Note CM Note Notes: Pt had surgery today and his DC likely delayed a few days. Lillian Dukes visited pt today and know the nee plan. CM to follow. Date Signed: 09/30/2017 03:57 PM Electronically Signed By:Karly Edmondson LCSW
[2017-09-30] MEDS ORDERED: ACETAMINOPHEN 325 MG TAB ONE (16:11)
[2017-09-30] MEDS: ACETAMINOPHEN 325 MG TAB PO PRN (16:13)
[2017-09-30] MEDS: ONDANSETRON 4 MG/2 ML VIAL IVP PRN (17:58)
[2017-09-30] MEDS: NS 1,000 ML IV SCH (20:57)
--- NOTE | 2017-10-01 07:26 | POSTANESTH ---
Post Anesthetic Evaluation Cardiovascular Status: Normal, Stable, Tx Over/Under Hydration Level of Consciousness/Mental Status: Can Participate in Eval Pain Control: Adequate, Prn Tx Ordered Nausea/Vomiting Control: Adequate, Prn Tx Ordered Complications Possibly Related to Anesthesia: None Noted
[2017-10-01] MEDS: ONDANSETRON 4 MG/2 ML VIAL IVP PRN ×2 (08:56→14:00)
[2017-10-01] MEDS: SENNOSIDES/DOCUSATE SODIUM TAB PO SCH ×2 (08:57→22:31)
[2017-10-01] MEDS: POLYETHYLENE GLYCOL 3350 17 GM PKT PO PRN (08:57)
[2017-10-01] MEDS: NS 1,000 ML IV SCH ×2 (09:05→18:25)
[2017-10-01] MEDS ORDERED: HYDROCODONE/APAP 5/325 TAB PO PRN (11:01)
--- NOTE | 2017-10-01 11:02 | SOAPPROG ---
SOAP Progress Note Assessment/Plan: Assessment: S/P APR NO BM, constipation, ostomy more congested, painful to get to fascia so went to OR S/P ostomy revision Nausea/dizzy post op Minimal gas and stool in bag Continue current cares Discharge when gas and stool in appliance Pain controlled Ambulates S: Feeling a bit better than he was last night Sitting in bed CTAB RRR BS present Ostomy pink and well formed. bag is flat, serosang in bag Incisions cdi Plan: 09/30/17 10:31 10/01/17 10:59 Objective: Vital Signs Temp Pulse Resp BP Pulse Ox 36.9 C 76 18 128/67 H 99 10/01/17 09:26 10/01/17 09:26 10/01/17 09:26 10/01/17 09:26 10/01/17 09:26 Laboratory Results 09/25/17 04:40 09/25/17 04:40 09/30/17 10/01/17 10/02/17 05:59 05:59 05:59 Intake Total 350 870 Output Total 445 385 250 Balance -95 485 -250 ICD10 Worksheet Patient Problems: Problems Problem Status Onset Rectal cancer Acute - ICD10 Problem Qualifiers (1) Rectal cancer
[2017-10-01] MEDS ORDERED: NS 1,000 ML IV ONE (16:19)
[2017-10-01] MEDS ORDERED: IOPAMIDOL (ISOVUE-300) 100 ML BTL ONE (16:54)
[2017-10-02 05:06] LABS: PLATELET COUNT 312 10^3/uL (150-400)
[2017-10-02] MEDS: SENNOSIDES/DOCUSATE SODIUM TAB PO SCH ×2 (08:58→19:59)
[2017-10-02] MEDS: POLYETHYLENE GLYCOL 3350 17 GM PKT PO PRN (11:28)
--- NOTE | 2017-10-02 13:05 | ASMTCMCOM ---
CM Note CM Note Notes: Pt's friend Quoc, with whom he will be staying at [place], expressed concerns about pt's bleeding from his MANUEL site yesterday and her ability to care for him at home b/o her work schedule. Quoc asked if CM would look into possibility of SNF. Spoke with Dorothea at . Pt has [place] ins and they require more of a need than nursing. PT/OT had cleared pt to DC with no PT/OT beeds. Spoke with pt and Quoc about this and they understood. Asked RN Angel to speak with them about their concerns. Pooja from [facility] will also speak with them today about [facility] can offer with RN at [place]. Pt's ostomy suppliies order form faxed to [facility] today. CM to follow. Date Signed: 10/02/2017 01:04 PM Electronically Signed By:Karly Edmondson LCSW
[2017-10-02] MEDS ORDERED: METOCLOPRAMIDE 10 MG TAB PO PRN (14:07)
[2017-10-02] MEDS ORDERED: METOCLOPRAMIDE 10 MG/2 ML VIAL ONE (14:16)
[2017-10-02] MEDS ORDERED: METOCLOPRAMIDE 10 MG/2 ML VIAL IVP PRN (14:23)
--- NOTE | 2017-10-02 18:21 | SOAPPROG ---
SOAP Progress Note Assessment/Plan: Assessment: S/P APR NO BM, constipation, ostomy more congested, painful to get to fascia so went to OR S/P ostomy revision Had bleed from old drain site yesterday - significant oozing. Hematoma by ostomy but no active extrav on ct Neuro - prn pain meds Resp - cough deep breath IS Cards - Monitor for hemodynamic instability GI - Awaiting for bowel function to return. Has gas but no stool yet. Work on bowel protocol Fen - Reg diet but don't eat very much Heme/ID - monitoring H/H Proph - Holding Lovenox due to bleed yesterday Discharge when gas and stool in appliance Pain controlled Ambulates S: Looks better today Sitting in chair CTAB RRR BS present Ostomy pink and well formed. bag with gas, serosang in bag Incisions cdi MANUEL site dry Plan: 09/30/17 10:31 10/01/17 10:59 10/02/17 18:17 Objective: Vital Signs Temp Pulse Resp BP Pulse Ox 37.3 C 86 14 107/60 97 10/02/17 15:28 10/02/17 15:28 10/02/17 15:28 10/02/17 15:28 10/02/17 15:28 Laboratory Results 10/02/17 04:27 10/02/17 04:27 10/01/17 10/02/17 10/03/17 05:59 05:59 05:59 Intake Total 473 554 2419 Output Total 385 1930 Balance 485 -1630 1050 ICD10 Worksheet Patient Problems: Problems Problem Status Onset Rectal cancer Acute - ICD10 Problem Qualifiers (1) Rectal cancer
[2017-10-02] MEDS: LACTULOSE 20 GM/30 ML UDCUP PO PRN (18:25)
[2017-10-02] MEDS ORDERED: MAGNESIUM CITRATE 300 ML BOTTLE PO PRN (18:53)
[2017-10-03 05:00] LABS: PLATELET COUNT 316 10^3/uL (150-400)
[2017-10-03] MEDS: SENNOSIDES/DOCUSATE SODIUM TAB PO SCH ×2 (08:38→20:23)
--- NOTE | 2017-10-03 12:57 | SOAPPROG ---
SOAP Progress Note Assessment/Plan: Assessment/Plan: - 62yo M s/p APR and subsequent colostomy revision - VSS, HDS - Hb 8.6, has been in the 9 range. Dont think he is actively bleeding - His abdomen is softer and less distended than when i saw him Thurs evening. He has some stool in the appliance. Cont diet - making progress, if ostomy output continues to improve plan for dc Thursday versus Thursday10/03/17 12:55 Subjective: feels better, gave detailed report of PO intake for last 24hrs Objective: Vital Signs Temp Pulse Resp BP Pulse Ox 36.9 C 88 16 102/56 L 98 10/03/17 08:00 10/03/17 08:00 10/03/17 08:00 10/03/17 08:00 10/03/17 08:00 Laboratory Results 10/03/17 04:32 10/02/17 04:27 10/02/17 10/03/17 10/04/17 05:59 05:59 05:59 Intake Total 300 1050 Output Total 1930 250 Balance -1630 800 ICD10 Worksheet Patient Problems: Problems Problem Status Onset Rectal cancer Acute
[2017-10-03] MEDS: LACTULOSE 20 GM/30 ML UDCUP PO PRN (20:23)
[2017-10-04] MEDS: SENNOSIDES/DOCUSATE SODIUM TAB PO SCH ×2 (08:16→20:16)
--- NOTE | 2017-10-04 10:55 | SOAPPROG ---
JOSE Progress Note Assessment/Plan: Assessment/Plan: - 62yo M s/p APR and subsequent colostomy revision - VSS, HDS - Looks great, his ostomy is functioning and has stool and gas in the appliance today. His abdomen is still a little distended but he has good bowel sounds - No bleeding issues - Plan for home tomorrow, is going to go a a friends house? will work on getting home care set up if not already done 10/03/17 12:55 10/04/17 10:54 Subjective: anxious about going home Objective: Vital Signs Temp Pulse Resp BP Pulse Ox 36.8 C 82 15 113/67 98 10/04/17 08:59 10/04/17 08:59 10/04/17 08:59 10/04/17 08:59 10/04/17 08:59 Laboratory Results 10/03/17 04:32 10/02/17 04:27 10/03/17 10/04/17 10/05/17 05:59 05:59 05:59 Intake Total 1050 800 Output Total 250 20 200 Balance 800 -20 600 ICD10 Worksheet Patient Problems: Problems Problem Status Onset Rectal cancer Acute
[2017-10-05 07:14] VITALS: BP 105/66
--- NOTE | 2017-10-05 10:43 | SOAPPROG ---
SOAP Progress Note Assessment/Plan: Assessment/Plan: 62yo M s/p Davinci APR and end colostomy. POD#5 s/p colostomy revision Pain controlled with PO meds Regular diet Return of bowel function - flatus and stool Wound ostomy nurse to see today Dispo: DC today with home care. FU with Jeanette in 1 week for suture removal. May shower. S: Feeling well. Ostomy functioning and having bowel movements. Distension improving. Eating well O: sitting upright in chair, comfortable, NAD No increased WOB +BS, abd slightly distended but soft, nontender. Ostomy with good profile, thin brown stool in appliance. Allevyn over RLQ drain removal sutures - dry, intact, no bleeding. APR dressing intact. Objective: Vital Signs Temp Pulse Resp BP Pulse Ox 36.9 C 71 14 105/66 100 10/05/17 07:14 10/05/17 07:14 10/05/17 07:14 10/05/17 07:14 10/05/17 07:14 Laboratory Results 10/03/17 04:32 10/02/17 04:27 10/04/17 10/05/17 10/06/17 05:59 05:59 05:59 Intake Total 2340 500 Output Total 20 1880 750 Balance -20 460 -250 ICD10 Worksheet Patient Problems: Problems Problem Status Onset Rectal cancer Acute
--- NOTE | 2017-10-05 10:47 | PDIAF ---
- Diagnosis Diagnosis: rectal ca Code Status: Full Code - Medication Management Discharge Medications: Medications to Continue on Transfer Acetaminophen [Tylenol 325mg (*)] 650 mg PO Q4HRS PRN tab 09/28/17 [Last Taken Unknown] Ibuprofen [Motrin (*)] 600 mg PO Q6HRS PRN tab 09/28/17 [Last Taken Unknown] Discharge Medications: Refer to the Discharge Home Medication list for PRN reason. PICC Care - Routine: N/A - Orders Services needed: Home Care, Registered Nurse Home Care Face to Face: I certify that this patient was under my care and that I had the required [id number] encounter meeting the encounter requirements on the discharge day. My findings support the fact that the patient is homebound as defined in Home Care Face to Face Continued: CMS Chapter 7 Medicare Benefits Manual 30.1.1 , The condition of the patient is such that there exists a normal inability to leave home and consequently, leaving home would require a considerable and taxing effort. Diet Recommendation: no restrictions on diet Diet Texture: Regular Texture Diet Sutures/Leigh Site: perineum, RLQ drain removal site Activity/Weight Bearing Restrictions: Avoid heavy lifting, pushing or pulling > 10 lbs x 4 weeks Additional Instructions: May shower No hot tubs, tub baths or swimming pools until cleared by Dr. Stack No heavy lifting pushing pulling greater than 15 lbs for [address] when not having active pain and not taking Rx pain medication. F/u with Dr. Stack/Kerrie JONAS in 1 weeks for suture removal. Home care nurse for wound checks, dressing changes and ostomy care Ostomy discharge information: When you go home you will be receiving samples from one or more companies. We understand that at first you may feel overwhelmed by all the choices. The ostomy nurses recommend that you continue with the appliance you were discharged with when you left the hospital for a month or two to adjust to the appliance. If however you have problems with leaking or itching under your faceplate/wafer, you may want to try some different samples.~ After you have adjusted to your stoma and feel ready, then you may look at the features of the new appliances and see if there is one that you like the look/feel/performance of better. There are 3 main ostomy supply companies out there: [employer], [employer] and [employer] all with varying features and options. If you have any leaking or pouching issues, or just need some questions answered , we recommend a consultation with our outpatient ostomy nurses. You can reach them at [phone] at [facility]. Please note that they are often scheduled several weeks out.~ - Follow Up Care Current Providers and Referrals: Luis Mcdonnell MD [Primary Care Provider] - Adele Stack MD [Medical Doctor] - follow up in 1 week (1 week, call to make appointment)
--- NOTE | 2017-10-05 11:15 | ASMTLACE ---
LACE Length of stay for Answers: 7-13 days current admission Acuity / Level of Answers: Yes Care: Did the patient have an inpatient admission? Comorbidities - select Answers: Any tumor (including all that apply lymphoma or leukemia) # of Emergency department Answers: 0 visits in the last 6 months Score: 10 Date Signed: 10/05/2017 11:15 AM Electronically Signed By:Holly Hernandez RN
--- NOTE | 2017-10-05 11:20 | ASMTCMCOM ---
CM Note CM Note Notes: Chart reviewed. Patient medically cleared for discharge to home with [facility]. Supplies for ostomy were ordered last week. Will send home with some supplies for today in case delivery delayed. Final orders via allscripts. CM available should other needs arise. [facility] ROSS Negron in to see patient. Plan: Home to [facility] house with [facility] Ernst. Date Signed: 10/05/2017 11:20 AM Electronically Signed By:Holly Hernandez RN
--- NOTE | 2017-10-05 12:41 | WOCRNPDOC ---
LISA Advanced Assessment Note - Colostomy Assessment, Advanced Left Lower Abdomen Colostomy Stoma Colostomy Appliance Intact: Yes Colostomy Appliance Currently in Use: Two Piece Flat, 2 1/4, Cut to Fit Stoma Shape: Round Stoma Height: Protruding Mucocutaneus Junction: Intact Colostomy Effluent: Flatus, Fecal, Pasty Colostomy Size - Head-to-Toe Length X Width X Depth (cm): 38 mm Colostomy Details: End Peristomal Skin: Intact Colostomy Comment/Treatment Details: Final teaching done with patient. Patient measured, cut template and placed ostomy pouch with verbal prompts from ice cream machine operator. He participated 100% in the teaching. He still has difficulty attaching the bag to the wafer and again ice cream machine operator recommended one piece appliances for him for the futur. Further practice would be helpful. Discussed using his step by step change sheet in his teaching packet to change his appliance. Emphasized resource of outpatient ice cream machine operator support at [facility] for follow up and questions. The idea to create and keep "urgent change" pouch change supplies bag discussed for when leaks happen not at home.
== END 2017-10-05 13:06 | disposition home health service (06) | DRG 330 ==
LOC: F1N 12:33 → EDSTATUS 14:15 → F1N 21:10
PROVIDERS: ADMIT Surgery; ATTEND Surgery
PROC: 0DTQ4ZZ Resection of Anus, Percutaneous Endoscopic Approach (ICD-10-PCS; 2017-09-22)
PROC: 8E0WXCZ Robotic Assisted Procedure of Trunk Region (ICD-10-PCS; 2017-09-22)
PROC: 0D1 Gastrointestinal System, Bypass (ICD-10-PCS; principal; 2017-09-22 14:15)
PROC: 0DTP4ZZ Resection of Rectum, Percutaneous Endoscopic Approach (ICD-10-PCS; 2017-09-30)
PROC: 0WQFXZ2 Repair Abdominal Wall, Stoma, External Approach (ICD-10-PCS; 2017-09-30)
DX: C20 Malignant neoplasm of rectum (principal); D12.8 Benign neoplasm of rectum; K94.09 Other complications of colostomy; K94.01 Colostomy hemorrhage; K59.00 Constipation, unspecified; Z92.3 Personal history of irradiation; Z92.21 Personal history of antineoplastic chemotherapy
CPT/HCPCS: 82947-QW; 97116-GP; 97161-GP; 97165-GO; 97530-GO; 97530-GP; 97535-GO; J0696; J1100; J1170; J1650; J1885; J2250; J2405; J2704; J2765; J3010; Q4131; Q9967

== ENCOUNTER 2017-12-27 09:48 | Observation (INO) | payer OTHER, MEDICAID ==
[2017-12-27] MEDS ORDERED: NS 1,000 ML IV ONE (10:10)
--- NOTE | 2017-12-27 10:10 | EDPHY ---
General Time Seen by Provider: 12/27/17 09:57 Narrative: CHIEF COMPLAINT: With nausea, vomiting diarrhea HISTORY OF PRESENT ILLNESS: Patient presents with complaints of nausea, vomiting diarrhea. He has had diarrhea over the past 2 weeks. He relates these to his chemotherapy. He has been taking oral chemotherapy daily as well as IV chemotherapy every 21 day for colorectal cancer. He is 2 months postoperative from partial colectomy. Diarrhea is been increasing for the past 2 weeks with increasing gas production as well. Vomiting started last night. He has no abdominal pain these had some chills. No fever. No chest pain or shortness of breath. No difficulty with urination. No other associated complaints or modifying factors. REVIEW OF SYSTEMS: Ten systems reviewed and are negative unless otherwise noted in the HPI PCP: Does not recall SPECIALISTS: Dr. Devlin, oncology Dr. Adele Stack, general surgery PAST MEDICAL HISTORY: Colorectal cancer, carpal tunnel, renal colic, anxiety, PAST SURGICAL HISTORY: Partial colectomy 2018 SOCIAL HISTORY: Nonsmoker. Lives independently. FAMILY HISTORY: Noncontributory EXAMINATION General Appearance: Alert, no distress. Frail-appearing. Head: normocephalic, atraumatic Eyes: Pupils equal and round, no conjunctival pallor or injection ENT, Mouth: Mucous membranes moist for mild glossitis Neck: Normal inspection, supple, non-tender Respiratory: Lungs are clear to auscultation. No wheezing, rhonchi or crackles Cardiovascular: Regular rate and rhythm Gastrointestinal: Abdomen is soft and nondistended. There is left lower quadrant ostomy bag with loose stool present and gas in the ostomy bag. No tympany rigidity. No palpable masses. No guarding. Back: non-tender, no bony abnormalities Neurological: A&O, nonfocal, normal gait Skin: Warm and dry. There is desquamation of the palms of the hands and minimally the soles of the feet. Extremities: Nontender, no pedal edema Psychiatric: Mood and affect normal DIFFERENTIAL DIAGNOSES: Including but not limited to C difficile colitis, diarrhea, gastritis, enteritis , dehydration, sepsis MDM: 10:10 a.m. High output ostomy with occasional vomiting in patient taking oral chemotherapy and every 21 day IV chemotherapy. Vital signs are limits. He does some desquamation of hands dryness of the oral mucosa. Were obtain laboratory studies including cultures and GI pathogen panel. He is in no acute distress. I have discussed with Dr. Warner. 11:20 a.m. Patient re-evaluated. He is feeling better with IV fluids still very weak. His family member bedside now reports that they are also concerned about his ability to care of himself at home. The patient says that he was elected to admit this but also feels that he may need additional care at home. I will consult hospitalist. 11:40 a.m. Case discussed with hospitalist Lizet Fields NP. Patient be admitted to Dr. Matute. He is admitted in stable condition. SUPERVISION: Patient was independently examined, but I discussed the case with my primary supervising physician Dr. Warner - History Smoking Status: Never smoked - Objective Vital Signs: Initial Vital Signs Temperature (C) 97.5 F 12/27/17 09:49 Heart Rate 90 12/27/17 09:49 Respiratory Rate 16 12/27/17 09:49 Blood Pressure 131/81 H 12/27/17 09:49 O2 Sat (%) 97 12/27/17 09:49 O2 Delivery Mode Room Air Allergies/Adverse Reactions: No Known Allergies Allergy (Verified 12/27/17 09:55) Home Medications: Medication Instructions Recorded Capecitabine [Capecitabine] 1,000 mg PO BID 12/27/17 Loperamide HCl [Imodium 2 mg (*)] 2 mg PO PRN PRN MDD 8/DAY 12/27/17 Ondansetron [Ondansetron Odt] 8 mg PO TID PRN 12/27/17 Simethicone [Mylicon 80 mg (OTC)] 80 mg PO TID PRN 12/27/17 Urea 40% [Urea Cream (*)] 1 dinora TP BID 12/27/17 Laboratory Results: Laboratory Results 12/27/17 10:20 12/27/17 10:20 12/27/17 12/27/17 10:20 10:20 WBC 5.04 10^3/uL 10^3/uL (3.80-9.50) RBC 4.46 10^6/uL 10^6/uL (4.40-6.38) Hgb 13.9 g/dL g/dL (13.7-17.5) Hct 40.6 % % (40.0-51.0) MCV 91.0 fL fL (81.5-99.8) MCH 31.2 pg pg (27.9-34.1) MCHC 34.2 g/dL g/dL (32.4-36.7) RDW 18.8 % H % (11.5-15.2) Plt Count 145 10^3/uL L 10^3/uL (150-400) MPV 9.9 fL fL (8.7-11.7) Neut % (Auto) 62.5 % % (39.3-74.2) Lymph % (Auto) 16.9 % % (15.0-45.0) Greene % (Auto) 19.8 % H % (4.5-13.0) Eos % (Auto) 0.0 % L % (0.6-7.6) Baso % (Auto) 0.4 % % (0.3-1.7) Nucleat RBC Rel Count 0.0 % % (0.0-0.2) Absolute Neuts (auto) 3.15 10^3/uL 10^3/uL (1.70-6.50) Absolute Lymphs (auto) 0.85 10^3/uL L 10^3/uL (1.00-3.00) Absolute Monos (auto) 1.00 10^3/uL H 10^3/uL (0.30-0.80) Absolute Eos (auto) 0.00 10^3/uL L 10^3/uL (0.03-0.40) Absolute Basos (auto) 0.02 10^3/uL 10^3/uL (0.02-0.10) Absolute Nucleated RBC 0.00 10^3/uL 10^3/uL (0-0.01) Immature Gran % 0.4 % % (0.0-1.1) Immature Gran # 0.02 10^3/uL 10^3/uL (0.00-0.10) Sodium 138 mEq/L mEq/L (135-145) Potassium 3.2 mEq/L L mEq/L (3.3-5.0) Chloride 103 mEq/L mEq/L (97-110) Carbon Dioxide 27 mEq/l mEq/l (22-31) Anion Gap 8 mEq/L mEq/L (8-16) BUN 9 mg/dL mg/dL (7-23) Creatinine 0.6 mg/dL L mg/dL (0.7-1.3) Estimated GFR > 60 Glucose 115 mg/dL H mg/dL (70-100) Calcium 9.1 mg/dL mg/dL (8.5-10.4) Total Bilirubin 0.5 mg/dL mg/dL (0.1-1.4) Conjugated Bilirubin 0.1 mg/dL mg/dL (0.0-0.5) Unconjugated Bilirubin 0.4 mg/dL mg/dL (0.0-1.1) AST 89 IU/L H IU/L (17-59) ALT 86 IU/L H IU/L (21-72) Alkaline Phosphatase 95 IU/L IU/L (38-126) Total Protein 5.3 g/dL L g/dL (6.3-8.2) Albumin 3.0 g/dL L g/dL (3.5-5.0) Lipase 381 IU/L H IU/L (23-300) Microbiology Results: MICROBIOLOGY 12/27/17 10:30 Stool Gastrointestinal Tract Panel (PCR) - Final No Organism Detected Medications Given: Discontinued Medications Sodium Chloride (Ns) 1,000 mls @ 0 mls/hr IV EDNOW ONE; Wide Open PRN Reason: Protocol Stop: 12/27/17 10:11 Last Admin: 12/27/17 10:17 Dose: 1,000 mls Departure - Departure Disposition: [facility] Inpatient Acute Clinical Impression: Dehydration, Colorectal cancer Diarrhea Qualifiers: Diarrhea type: unspecified type Qualified Code(s): R19.7 - Diarrhea, unspecified Condition: Fair
[2017-12-27 10:28] LABS: PLATELET COUNT 145 10^3/uL (150-400)
[2017-12-27] MEDS ORDERED: ONDANSETRON 4 MG/2 ML VIAL IVP PRN (13:22)
[2017-12-27] MEDS ORDERED: ACETAMINOPHEN 325 MG TAB PO PRN (13:22)
[2017-12-27] MEDS ORDERED: ONDANSETRON DISINTEGRATING 4 MG TAB PO PRN ×2 (13:22→14:00)
[2017-12-27] MEDS ORDERED: SIMETHICONE 80 MG TAB CHEW PO PRN (13:23)
[2017-12-27] MEDS ORDERED: NS 1,000 ML IV SCH (13:30)
--- NOTE | 2017-12-27 14:13 | ASMTCMCOM ---
CM Note CM Note Notes: Pt presented to the ED for N/V/D and dehydration. Pt has a history of colorectal cancer and has been taking oral chemo meds daily as well as IV chemo every 21 days. Pt is followed by Dr Devlin at [facility]. Pt lives alone in [place] but used to work in [place]; pt's employer and friend [employer] ([phone]) is at bedside. It is not clear how much patient is still working or if at all. Pt was admitted to [facility] from 09/22 - 10/05/17 after having a partial colectomy and ostomy placed by Dr Stack and was discharged home to [employer] [facility] in [place] w/Ernst RN and PT. Pt gets his ostomy supplies through [place]. Pt states he plans on switching to an oncologist closer to his home in [place] once this next round of chemo is completed. Pt has been in contact with [facility] diesel maintenance technician Adele Padilla (see her note 09/30/17) who has provided ongoing support and resources. Pt reports he has had decreased intake due to decreased energy, weakness and his food taste changing, but pt says he has not had any falls and is still able to ambulate and drive. Pt states he would be interested in being able to stay in a nursing care facility in order to regain strength. We also discussed that this option was looked into during his last admission but per pt's insurance, [employer], at the time pt didn't have enough medical needs to authorize a SNF stay (refer CM Assessment 10/02/17). Pt states he also now has Medicaid. If pt still does not meet criteria for SNF placement, consider initiating HCBS process and see if pt can receive some assistance at home w/meal prep, house cleaning, etc. Per 09/22/17 CM Assessment, pt and [employer] inquired about pt qualifying for SSDI and a referral to [facility] was sent. Exact DC needs TBD. CM to follow. Date Signed: 12/27/2017 02:12 PM Electronically Signed By:Amy Navarro RN
--- NOTE | 2017-12-27 14:19 | GHP ---
[f rep st] HISTORY AND PHYSICAL DATE OF ADMISSION: 12/27/2017 CHIEF COMPLAINT: Diarrhea, weakness. HISTORY OF PRESENT ILLNESS: This is a 62-year-old male with a history of cancer. He rece ived neoadjuvant chemotherapy, and then had a colon resection with colostomy in August. He is continu ing chemotherapy. He does not usually get extensive diarrhea, but over the last 10 days has been hav ing watery diarrhea. He has also had decreased p.o. intake due to changes in taste. He is not havin g any abdominal pain. No blood in his stool. No fevers or chills. He has been taking Imodium, and that seems to be helping some. He does feel weak. No chest pain or shortness of breath. He does ad keshia to some skin changes in his hands and feet, with peeling and redness and pain due to chemotherapy . REVIEW OF SYSTEMS: A 10-point review of systems was obtained and negative. PAST MEDICAL HISTORY: cancer. PAST SURGICAL HISTORY: Carpal tunnel release, and tonsillectomy. MEDICATIONS: Reviewed. SOCIAL HISTORY: No smoking. FAMILY HISTORY: Reviewed. PHYSICAL EXAMINATION: VITAL SIGNS: Afebrile, blood pressure is 127/68, heart rate 74, oxygen satura tion 95% on room air. GENERAL: Patient is thin, but in no apparent distress. HEENT: Nonicteric sc lerae. NECK: Supple. No thyromegaly. LUNGS: Good effort. Clear to auscultation bilaterally CARD IOVASCULAR: Regular rate and rhythm. No murmurs, gallops. ABDOMEN: Positive bowel sounds. Soft, nontender. Colostomy noted with some green stool, watery, but fairly formed. EXTREMITIES: No clubb ing, cyanosis, or edema. There is redness in both hands and feet, with peeling of the skin. NEUROLO GIC: Alert x3. Moves all 4 extremities equally. PSYCH: Normal affect. LABS: Potassium is little bit low at 4.2. Liver function tests slightly elevated, 89 AST, and 86 AL T. Lipase is also slightly elevated. CBC is normal, although platelets are 145. ASSESSMENT: This is a 62-year-old male presenting with acute diarrhea after chemotherapy. PLAN: 1. Diarrhea: GI pathogen panel is negative. This is probably related to the chemotherapy. It is g etting better. We will continue Imodium as needed. Hopefully, with some IV fluids, he can bounce ba ck and be discharged tomorrow. 2. cancer. Oncology will see the patient as well. /[id number]/MODL
[2017-12-27] MEDS: D5W NS W/ 20 KCl/L 1,000 ML IV SCH ×2 (14:48→22:05)
[2017-12-27] MEDS: LOPERAMIDE HCL 2 MG CAP PO PRN ×3 (20:14→22:07)
[2017-12-27] MEDS: CAPECITABINE 1000 MG PO SCH (20:30)
[2017-12-27] MEDS ORDERED: UREA 40% CREAM TP SCH (21:00)
[2017-12-28] MEDS: [UNRECOGNIZED DRUG - OTHER] TP SCH ×2 (00:15→08:42)
[2017-12-28] MEDS: LOPERAMIDE HCL 2 MG CAP PO PRN ×3 (03:55→14:10)
[2017-12-28 04:41] LABS: PLATELET COUNT 108 10^3/uL (150-400)
[2017-12-28] MEDS: D5W NS W/ 20 KCl/L 1,000 ML IV SCH (05:07)
[2017-12-28] MEDS ORDERED: POTASSIUM CL 20 MEQ/15 ML UDCUP PO ONE (08:32)
[2017-12-28] MEDS ORDERED: [UNRECOGNIZED DRUG - OTHER] TP SCH (09:00)
[2017-12-28] MEDS ORDERED: UREA TP SCH (09:00)
[2017-12-28] MEDS ORDERED: ENOXAPARIN 40 MG/0.4 ML SYR SC SCH (09:00)
--- NOTE | 2017-12-28 09:57 | ASMTCMCOM ---
CM Note CM Note Notes: We will need Therapy orders to determine if patient meets SNF guidelines. Date Signed: 12/28/2017 09:55 AM Electronically Signed By:Dhara Warren LCSW
[2017-12-28] MEDS: CAPECITABINE 1000 MG PO SCH (10:10)
[2017-12-28] MEDS ORDERED: POTASSIUM CL 20 MEQ TAB PO ONE (10:30)
[2017-12-28 11:34] VITALS: BP 122/68
--- NOTE | 2017-12-28 11:48 | GDS ---
[f rep st] DISCHARGE SUMMARY DISCHARGE DIAGNOSES: 1. Colon cancer , s/p resection and colostomy in August 2017, on chemotherapy. 2. Acute diarrhea. HISTORY OF PRESENT ILLNESS: A 62-year-old male with history of colon cancer, on chemotherapy, presenting with diarrhea for the past 10 days. This is watery. No blood. No fevers, chills, or sweats. No abdominal pain. No change in his taste buds. No dizziness or lightheadedness. He has some skin changes in his hands and feet with peeling and redness from the chemotherapy. HOSPITAL COURSE BY PROBLEM: 1. Diarrhea: chemo-related. Negative GI panel. Stools are still soft, but improved with Imodium. Continue this. 2. Hypokalemia, repleted. 3. Colon cancer, status post colon resection and colostomy in August 2017. Chemo scheduled for 01/08 DISPOSITION: The patient is stable for discharge home. NEW MEDICATIONS: Imodium as needed. PHYSICAL EXAMINATION: VITAL SIGNS: Temperature is 36.7, blood pressure 142/78 , heart rate is in 70s, respiration 18, 98% on room air. GENERAL: Thin male, walking around the unit, in no acute distress. HEENT: Moist mucous membranes. CV: Regular rate and rhythm. LUNGS: Clear. ABDOMEN: Soft, nontender, nondistended. Positive bowel sounds. : No Bashir. MUSCULOSKELETAL: Hands with peeling and redness. No ulceration or purulence. NEURO: 2 through 12 intact. PSYCH: Alert and oriented x3. Time spent on discharge greater than 30 minutes counseling the patient on staying hydrated, medications and followup plan. /[id number]/MODL MTDD
--- NOTE | 2017-12-28 13:20 | GCON ---
[f rep st] CONSULTATION ONCOLOGY INITIAL VISIT PRIMARY ONCOLOGIST: Dr. Nadeem Devlin REASON FOR VISIT: Management of rectal cancer. HISTORY OF PRESENT ILLNESS: The patient is a 62-year-old gentleman who was diagnosed with a stage II IB (T3 N1b) adenocarcinoma of the rectum. He underwent neoadjuvant radiation with concurrent capecit abine. He did have some trouble I believe with some hand-foot syndrome with that regimen. He then u nderwent resection and now is undergoing adjuvant chemotherapy with oxaliplatin and capecitabine. He had his third cycle on December 18. After the second cycle, he had some difficulty with significant loo se stools, then hand-foot symptoms. Xeloda dose was decreased for this third cycle. He reports about 5 days ago, his hand tenderness and soreness in his feet worsened. He also started having some skin peeling. He denies any mouth sores, but last couple of days, he has had some troubl e swallowing the Xeloda pills causing him to gag and he vomited once. He has also had some persisten t diarrhea over the last couple of weeks that worsened over the weekend. He was admitted to the hosp ital overnight, was sort of intravascular fluid depletion. He was hydrated overnight, started on Imo dium, and cultures were drawn. GI evaluation was negative for infection and he is feeling much moshe r after the hydration. He is hoping to go home today. ALLERGIES: He has no known drug allergies. HOME MEDICATIONS: Include urea cream for his hands, ondansetron as needed, simethicone, loperamide, and capecitabine. MEDICAL HISTORY: Significant for rectal cancers per HPI. SURGICAL HISTORY: Includes carpal tunnel, tonsillectomy, and the rectal cancer surgery. SOCIAL HISTORY: He is single, nonsmoker. FAMILY HISTORY: His father had prostate cancer. Maternal grandfather of colon cancer. REVIEW OF SYSTEMS: 10-point review of systems performed, pertinent positives as per HPI, otherwise n egative. PHYSICAL EXAMINATION: VITAL SIGNS: Temperature is 36.8, pulse 69, blood pressure 122/68. GENERAL: He is well-appearing in no distress. HEENT: Unremarkable. LUNGS: Clear. CARDIAC: Regular. ABD OMEN: Soft. EXTREMITIES: His hands are peeling significantly with underlying erythema, but no blis tering or ulcerations. NEUROLOGIC: Grossly intact. LABORATORY DATA: This morning: White count 2800, hemoglobin 11.2, platelet count 108,000, ANC is 11 00. Chemistries: Potassium is a little low at 3.2, it is now 3.3 this morning. Creatinine is 0.5. IMPRESSION: 1. Chemotherapy-induced diarrhea. 2. Chemotherapy-induced hand-foot syndrome. 3. Stage III rectal cancer, on adjuvant chemotherapy. I think he is clinically stable to be able to go home. He is encouraged to continue hydrating and us ing Imodium as needed. I have also instructed him to stop the Xeloda for the rest of the cycle since he is having fairly significant issues with his hands. This may be partially due that it did comple tely heal from the second cycle before moving on to the third cycle. I encouraged him to continue us ing the urea liberally. He has a followup appointment later this week, which I recommend that he irma Tam #: [id number]/MODL
== END 2017-12-28 14:10 | disposition home or self-care (01) ==
LOC: F1N 13:51
PROVIDERS: ADMIT Internal Medicine; ATTEND Internal Medicine
DX: R19.7 Diarrhea, unspecified (principal); T45.1X5A Adverse effect of antineoplastic and immunosuppressive drugs, initial encounter; C18.9 Malignant neoplasm of colon, unspecified; E86.0 Dehydration; Z90.49 Acquired absence of other specified parts of digestive tract; Z93.3 Colostomy status
CPT/HCPCS: 96360; 99285; G0378; J1650; J2405